=== PATIENT | male | born 1955 | race Caucasian/White ===

== ENCOUNTER 2020-04-10 23:48 | Emergency (ER) | payer OTHER, MEDICARE ==
[~2020-04-10] VITALS: Ht 193 cm; Wt 172.0 kg
[2020-04-10] MEDS ORDERED: ondansetron/PF 4mg/2ml inj IV ONE (23:55)
[2020-04-11 00:13] LABS: HEMOGLOBIN 13.7 g/dl (14.0-17.9); MEAN PLATELET VOLUME 7.5 FL (7.4-10.4)
[2020-04-11 00:15] LABS: BASOPHILS # (AUTO) 0.1 X10'3 (0-0.2); BASOPHILS % (AUTO) 0.9 % (0-1); EOSINOPHILS # (AUTO) 0.1 X10'3 (0-0.9); EOSINOPHILS % (AUTO) 1.1 % (0-6); HEMATOCRIT 40.4 % (42.0-52.0); LYMPHOCYTES # (AUTO) 2.6 X10'3 (1.1-4.8); LYMPHOCYTES % (AUTO) 34.5 % (21-51); MEAN CORPUSCULAR HEMOGLOBIN 32.8 PG (27.0-31.0); MEAN CORPUSCULAR HGB CONC 33.8 g/dL (33.0-36.5); MONOCYTES # (AUTO) 0.6 X10'3 (0-0.9); MONOCYTES % (AUTO) 8.6 % (2-12); NEUTROPHILS # (AUTO) 4.1 X10'3 (1.8-7.7); NEUTROPHILS % (AUTO) 54.9 % (42-75); PLATELET COUNT 140 X10'3 (140-440); RED BLOOD COUNT 4.17 X10'6 (4.70-6.10); RED CELL DISTRIBUTION WIDTH 14.5 % (11.5-14.5); WHITE BLOOD COUNT 7.5 X10'3 (4.5-11.0)
[2020-04-11 00:22] LABS: ALANINE AMINOTRANSFERASE 29 U/L (12-78); ALBUMIN 2.6 G/DL (3.4-5.0); ALBUMIN/GLOBULIN RATIO 0.6 (1.1-1.5); ALKALINE PHOSPHATASE 117 IU/L (46-116); ANION GAP 8 (8-16); ASPARTATE AMINO TRANSFERASE 53 U/L (10-37); BILIRUBIN,TOTAL 0.9 MG/DL (0.1-1.0); BLOOD UREA NITROGEN 10 MG/DL (7-18); CALCIUM 8.6 MG/DL (8.5-10.1); CHLORIDE 110 MMOL/L (99-107); ETHANOL 0.202 GM/DL (0.0-0.010); GLUCOSE 112 MG/DL (70-104); POTASSIUM 3.7 MMOL/L (3.5-5.1); SODIUM 146 MMOL/L (135-145); TOTAL CARBON DIOXIDE 27.7 MMOL/L (24-32); eGFR 76 ML/MIN
[2020-04-11 01:06] VITALS: BP 107/56
[2020-04-11 01:08] LABS: CLARITY,URINE CLEAR (Clear); COLOR,URINE YELLOW (Yellow); GLUCOSE, URINE NEGATIVE (Neg); KETONES,URINE NEGATIVE (Neg); LEUKOCYTE ESTERASE ,URINE NEGATIVE (Neg); NITRITES, URINE NEGATIVE (Neg); OCCULT BLOOD,URINE MODERATE (Neg); PROTEIN,URINE NEGATIVE (Neg)
[2020-04-11 01:12] LABS: UA COLLECTION TYPE VOIDED
[2020-04-11 01:14] LABS: BACTERIA,URINE NONE SEEN /HPF (Neg); MUCUS STRANDS NONE SEEN /LPF (Neg); SQUAMOUS EPITHELIAL CELL,UR FEW /LPF (FEW); WBC,URINE 0-4 /HPF (0-4)
== END 2020-04-11 01:07 | disposition home or self-care (01) ==
LOC: ER 23:49
DX: F10.229 Alcohol dependence with intoxication, unspecified (principal); R53.1 Weakness; R42 Dizziness and giddiness; R11.0 Nausea; Z72.89 Other problems related to lifestyle
CPT/HCPCS: 80053; 80320; 81001; 85025; 93005; 96374; 99284; J2405

== ENCOUNTER 2020-04-14 16:23 | Emergency (ER) | payer OTHER, MEDICARE ==
[~2020-04-14] VITALS: Ht 193 cm; Wt 131.8 kg
[2020-04-14] MEDS ORDERED: potassium Cl 10 mEq/100mL bag IV ONE (17:45)
[2020-04-14] MEDS ORDERED: folic acid 1mg/0.2ml inj IV ONE (17:45)
[2020-04-14] MEDS ORDERED: normal saline 1000ML IV soln IVB ONE (17:45)
[2020-04-14] MEDS ORDERED: thiamine 100mg/ml 2ml inj. IV ONE (17:45)
[2020-04-14] MEDS ORDERED: magnesium 2GM in 50ml NS 50 ML IV ONE (17:45)
[2020-04-14 18:05] LABS: BASOPHILS % (AUTO) 0.3 % (0-1); EOSINOPHILS % (AUTO) 0.2 % (0-6); HEMATOCRIT 43.1 % (42.0-52.0); HEMOGLOBIN 14.4 g/dl (14.0-17.9); LYMPHOCYTES # (AUTO) 1.4 X10'3 (1.1-4.8); LYMPHOCYTES % (AUTO) 25.2 % (21-51); MEAN CORPUSCULAR HGB CONC 33.4 g/dL (33.0-36.5); MEAN CORPUSCULAR VOLUME 95.9 FL (78-98); MEAN PLATELET VOLUME 7.4 FL (7.4-10.4); MONOCYTES # (AUTO) 0.3 X10'3 (0-0.9); MONOCYTES % (AUTO) 6.3 % (2-12); NEUTROPHILS # (AUTO) 3.8 X10'3 (1.8-7.7); PLATELET COUNT 139 X10'3 (140-440); RED BLOOD COUNT 4.49 X10'6 (4.70-6.10); RED CELL DISTRIBUTION WIDTH 14.4 % (11.5-14.5); WHITE BLOOD COUNT 5.6 X10'3 (4.5-11.0)
[2020-04-14 18:18] LABS: ALANINE AMINOTRANSFERASE 21 U/L (12-78); ALBUMIN/GLOBULIN RATIO 0.6 (1.1-1.5); ALKALINE PHOSPHATASE 99 IU/L (46-116); ANION GAP 14 (8-16); ASPARTATE AMINO TRANSFERASE 74 U/L (10-37); BILIRUBIN,TOTAL 1.6 MG/DL (0.1-1.0); BLOOD UREA NITROGEN 9 MG/DL (7-18); CALCIUM 8.6 MG/DL (8.5-10.1); CHLORIDE 105 MMOL/L (99-107); CREATININE 1.13 MG/DL (0.60-1.10); ETHANOL 0.297 GM/DL (0.0-0.010); GLUCOSE 80 MG/DL (70-104); POTASSIUM 3.2 MMOL/L (3.5-5.1); SODIUM 146 MMOL/L (135-145); TOTAL CARBON DIOXIDE 27.2 MMOL/L (24-32); TOTAL PROTEIN 7.8 G/DL (6.4-8.2); eGFR 66 ML/MIN
[2020-04-14 18:53] LABS: CLARITY,URINE SLIGHTLY CLOUDY (Clear); COLOR,URINE YELLOW (Yellow); GLUCOSE, URINE NEGATIVE (Neg); KETONES,URINE 15 mg/dl (Neg); LEUKOCYTE ESTERASE ,URINE NEGATIVE (Neg); NITRITES, URINE NEGATIVE (Neg); OCCULT BLOOD,URINE LARGE (Neg); PROTEIN,URINE 100 mg/dl (Neg)
[2020-04-14 18:56] LABS: UA COLLECTION TYPE VOIDED
[2020-04-14 18:59] LABS: BACTERIA,URINE 1+ /HPF (Neg); RBC,URINE TNTC /HPF (0-2); SQUAMOUS EPITHELIAL CELL,UR FEW /LPF (FEW); WBC,URINE 0-4 /HPF (0-4)
[2020-04-14 19:15] LABS: URINE AMPHETAMINE SCREEN NEGATIVE (Neg); URINE BARBITUATE SCREEN NEGATIVE (Neg); URINE BENZODIAZEPINES SCREEN NEGATIVE (Neg); URINE CANNABINOID SCREEN NEGATIVE (Neg); URINE COCAINE SCREEN NEGATIVE (Neg); URINE METHADONE SCREEN NEGATIVE (Neg); URINE OPIATE SCREEN NEGATIVE (Neg); URINE PHENCYCLIDINE SCREEN NEGATIVE (Neg)
--- NOTE | 2020-04-14 20:28 | NUR ---
PT TRANSFERED TO ED OVERFLOW BY RN. PT PLACED IN BED 23. IV FLUIDS CONTINUED. BLOOD GLUCOSE CHECKED AT 71. PT PROVIDED WITH SANDWICH AND APPLE JUICE DUE TO MISSING DINNER TRAY. NO S/S OF DISTRESS OR PAIN. PT AMBULATED WITHOUT DIFFICULTY TO OVERFLOW. PT PLACED IN DETECTIVE AUTOMOBILE SECTION SOCKS PRIOR TO TRANSFER. PT COOPERATIVE WITH CARE. PT PLACED ON HISTORY PROFESSOR IN OVERFLOW FOR CONTINUATION OF MONITORING.
[2020-04-14] MEDS ORDERED: CIPR-259 PO (20:40)
[2020-04-14] MEDS ORDERED: NALT50TA PO (20:40)
[2020-04-14] MEDS ORDERED: PROP10TA10 PO (20:40)
[2020-04-14] MEDS ORDERED: ZINC50TA15 PO (20:40)
[2020-04-14] MEDS ORDERED: FLO0.4C PO (20:40)
[2020-04-14] MEDS ORDERED: THIA50TA10 PO (20:40)
[2020-04-14] MEDS ORDERED: IBUP-1986 PO (20:40)
[2020-04-14] MEDS ORDERED: SPIR50TA5 PO (20:40)
[2020-04-14] MEDS ORDERED: ATOR80TA PO (20:40)
[2020-04-14] MEDS ORDERED: PANT20TA18 PO (20:40)
[2020-04-14] MEDS ORDERED: SERT100T10 PO (20:40)
[2020-04-14] MEDS ORDERED: GABA600T13 PO (20:40)
[2020-04-14] MEDS ORDERED: MULT-1085 PO (20:40)
[2020-04-14] MEDS ORDERED: HYDR-3686 PO (20:40)
[2020-04-14] MEDS ORDERED: SODI30SP3 BOTHNARES (20:40)
[2020-04-14] MEDS ORDERED: FURO40TA4 PO (20:40)
[2020-04-14] MEDS ORDERED: BUSP10TA11 PO (20:40)
[2020-04-14] MEDS ORDERED: hydrOXYzine 25 MG tablet PO PRN (20:50)
[2020-04-14] MEDS ORDERED: ibuprofen tablet 400 MG TABLET PO PRN (21:12)
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
--- NOTE | 2020-04-14 23:54 | NUR ---
PT DC'D FROM MONITOR. MONITOR AND IV POLES REMOVED FROM ROOM. 20G IV STILL IN PLACE IN RIGHT AC. PT RESTING ON LEFT SIDE. NO S/S OF DISTRESS OR PAIN. WILL CONTINUE TO MONITOR.
--- NOTE | 2020-04-15 03:28 | NUR ---
pt resting in bed on right side. pt ambulated to restroom. no s/s of distress or pain. will continue to monitor.
--- NOTE | 2020-04-15 06:15 | NUR ---
PT RESTING IN BED ON RIGHT SIDE. RR OF 15. NO S/S OF DISTRESS OR PAIN. WILL CONTINUE TO MONITOR.
--- NOTE | 2020-04-15 06:46 | NUR ---
patient received on bed asleep.We will monitor.
[2020-04-15] MEDS ORDERED: pantoprazole 40mg Tablet.DR PO SCH (07:30)
[2020-04-15] MEDS ORDERED: busPIRone 5mg tablet PO SCH (08:00)
[2020-04-15] MEDS ORDERED: sertraline 50mg tablet PO SCH (08:00)
[2020-04-15] MEDS ORDERED: ciprofloxacin 250mg tablet PO SCH (08:00)
[2020-04-15] MEDS ORDERED: naltrexone 50mg tablet PO SCH (08:00)
[2020-04-15] MEDS ORDERED: gabapentin 300mg capsule PO SCH (08:00)
[2020-04-15] MEDS ORDERED: multivitamins, therapeutics tablet PO SCH (08:00)
[2020-04-15] MEDS ORDERED: tamsulosin 0.4mg capsule PO SCH (08:00)
[2020-04-15] MEDS ORDERED: furosemide 40mg tablet PO SCH (08:00)
[2020-04-15] MEDS ORDERED: ZINC GLUCONATE 50 MG PO SCH (08:00)
[2020-04-15] MEDS ORDERED: propranolol 10mg tablet PO SCH (08:00)
[2020-04-15] MEDS ORDERED: spironolactone 50 MG tablet PO SCH (08:00)
[2020-04-15] MEDS ORDERED: thiamine 100mg tablet PO SCH (08:00)
--- NOTE | 2020-04-15 08:37 | NUR ---
PATIENT REPORTS HE DOESN'T TAKE ZINC AND NALTREXONE ANYMORE.
--- NOTE | 2020-04-15 08:48 | NUR ---
Due meds given,breakfast tray served.Patient cooperative.
[2020-04-15] MEDS ORDERED: LORazepam 2 mg/ml vial IV PRN (08:55)
[2020-04-15] MEDS ORDERED: haloperidol lactate 5mg/ml inj IM PRN (08:55)
[2020-04-15] MEDS ORDERED: haloperidol 5mg tablet PO PRN (08:55)
--- NOTE | 2020-04-15 08:55 | NUR ---
patient reports feeling "shaky",and that he drinks half a gallon of vodka everyday,Dr. Kowalski made aware.Librium ordered.
--- NOTE | 2020-04-15 10:01 | NUR ---
patient sleeping on right side.respirations regular.
[2020-04-15] MEDS ORDERED: chlordiazePOXIDE 25mg capsule PO SCH (10:30)
--- NOTE | 2020-04-15 11:30 | NUR ---
Patient up to nurse's station conversing with Primary RN,remains calm and cooperative.
--- NOTE | 2020-04-15 12:11 | NUR ---
Patient asleep on left side,we will monitor.
--- NOTE | 2020-04-15 12:53 | NUR ---
patient sitting at the edge of bed eating lunch.
--- NOTE | 2020-04-15 13:34 | NUR ---
patient reports inability to sleep but asleep most of the time.
--- NOTE | 2020-04-15 13:35 | NUR ---
Patient on right side asleep,respirations regular,we will monitor.
[2020-04-15] MEDS ORDERED: LACT10SO PO (14:03)
--- NOTE | 2020-04-15 14:19 | NUR ---
Pt given his home medications that were stored in pharmacy. Pt is looking for his glasses. Pt currently has 3 pairs of glasses in his belongings and states that none of them are the ones he is looking for. Pt is looking through his suitcase for the glasses.
[2020-04-15 14:34] VITALS: BP 126/68
[2020-04-15] MEDS ORDERED: lactobacillus rhamnosus 10,000 MMU CELLS/CAPSULE PO SCH (20:00)
[2020-04-15] MEDS ORDERED: atorvastatin 20mg tablet PO SCH (21:00)
[2020-04-17] MEDS ORDERED: LORazepam 1 MG tablet PO PRN (08:55)
[2020-04-19] MEDS ORDERED: LORazepam 1 MG tablet PO PRN (08:55)
== END 2020-04-15 14:37 | disposition home or self-care (01) ==
LOC: ER 16:24
DX: F10.229 Alcohol dependence with intoxication, unspecified (principal); R45.851 Suicidal ideations; F32.9 Major depressive disorder, single episode, unspecified; Z72.89 Other problems related to lifestyle; Z79.899 Other long term (current) drug therapy
CPT/HCPCS: 36415; 80053; 80305; 80320; 81001; 82948; 85025; 93005; 96365; 96366; 96375; 99285; J3411; J3475; J3480; J3490; J7030; Q0177; 96368